=== PATIENT | female | born 1940 | race Caucasian/White ===

== ENCOUNTER 2019-04-26 15:20 | Inpatient (IN) | payer OTHER ==
[~2019-04-26] VITALS: Ht 167.6 cm; Wt 76.6 kg
[~2019-04-26 15:20] MED LIST: ASPI81CH PO; GEMF600 PO; GLIM2 PO; LEVSOD50 PO; METF500 PO; OSTEO BI-FLEX1 EAC4 PO
[2019-04-26 16:14] LABS: BASOPHILS ABSOLUTE AUTO 0.08 K/mm3 (0.00-0.23); BASOPHILS PERCENT AUTO 1 % (0-2); EOSINOPHILS ABSOLUTE AUTO 0.14 K/mm3 (0.00-0.68); EOSINOPHILS PERCENT AUTO 1 % (0-6); Hematocrit 35.7 % (33.0-51.0); Hemoglobin 11.4 g/dL (11.5-16.0); IMMATURE GRAN ABSOLUTE AUTO 0.05 K/mm3 (0.00-0.10); IMMATURE GRAN PERCENT AUTO 1 % (0-1); LYMPHOCYTES ABSOLUTE AUTO 1.34 K/mm3 (0.84-5.20); LYMPHOCYTES PERCENT AUTO 13 % (21-46); MONOCYTES ABSOLUTE AUTO 0.77 K/mm3 (0.16-1.47); MONOCYTES PERCENT AUTO 7 % (4-13); Mean Corpuscular HGB 29.2 pg (26.0-34.0); Mean Corpuscular HGB Conc 31.9 g/dL (31.5-36.5); Mean Platelet Volume 11.1 fL (9.1-12.4); NEUTROPHILS PERCENT AUTO 77 % (41-73); Platelet Count 213 K/mm3 (150-400); RDW Standard Deviation 46.7 fL (35.1-46.3); Red Blood Cell Count 3.91 M/mm3 (3.80-5.20); White Blood Cell Count 10.48 K/mm3 (4.00-11.30)
[2019-04-26 16:15] LABS: Mean Corpuscular Volume 91 fL (80-100)
[2019-04-26 16:21] LABS: International Normalized Ratio 1.02; Prothrombin Time Results 10.8 Sec (9.7-11.5)
[2019-04-26 16:26] LABS: Alanine Aminotransfer (ALT/SGP 14 U/L (12-78); Albumin, Blood 3.2 g/dL (3.4-5.0); Albumin/Globulin Ratio 1.2 (0.8-1.8); Alk Phos 63 U/L (50-136); Anion Gap 12 mmol/L (6-16); Aspartate Aminotrans (AST/SGOT 8 U/L (12-37); Bilirubin, Total 0.4 mg/dL (0.1-1.0); Blood Urea Nitrogen 28 mg/dL (8-24); Bun/Creatinine Ratio 35.1 (12.0-20.0); CO2, Blood 19 mmol/L (21-32); Chloride, Blood 113 mmol/L (98-108); Globulin, Blood 2.7 g/dL (2.2-4.0); Glomerular Filtration Rate >60 (60-); Glucose, Blood 208 mg/dL (70-99); Sodium, Blood 144 mmol/L (136-145); Total Protein, Blood 5.9 g/dL (6.4-8.2)
[2019-04-26] MEDS ORDERED: Vitamin D2000 UNIT PO (17:01)
[2019-04-26] MEDS ORDERED: OMEPRAZOLE20 MG PO (17:01)
--- NOTE | 2019-04-26 18:22 | NUR ---
ICU ADMIT/DR. BENAVIDES/SUMMARY PT ARRIVES TO ICU 10 AT 1725 VIA ER [facility]. PT AWAKE, ALERT AND ORIENTED. MONITOR SHOWS SINUS TACH WITH HR 1-TEENS, SBP ELEVATED 140-160'S. PT NOTED TO HAVE STEADY STREAM OF LIQUID DARK RED STOOL. PT STATES SHE HAS NO CONTROL OVER BOWELS AT THIS TIME. RECTAL TUBE PLACED WITH RETURN OF 500ML WITHIN FIRST 30 MINUTES. PT REPORTS ABDOMINAL CRAMPING. DENIES ANY OTHER SYMPTOMS. APPROX 1745, PT STATES SHE FEELS DIZZY. HEAD OF BED LAID BACK. PT THEN BECOMES UNRESPONSIVE AND APNEIC. CODE BLUE CALLED, BEGIN TO BAG THE PT. WITHIN 1-2 MINUTES, PT BEGINS TO AROUSE. BP READING DURING THIS EVENT SYSTOLIC 40'S. NS BOLUS STARTED. CALL TO DR BENAVIDES WITH ORDERS TO TRANSFUSE 2 UNITS PRBC'S AND LITER BOLUS OF NS, PREP PT FOR COLONOSCOPY. PT'S FAMILY MEMBERS TO BEDSIDE - UPDATED PT AND FAMILY ON EVENTS, PLAN OF CARE. PT CURRENTLY RECEIVING 2 UNITS PRBC CONCURRENTLY. SBP 130'S AT THIS TIME, HR 90-100. RECTAL TUBE CONTINUES TO DRAIN TO GRAVITY. PT HAS 3 PIV'S. PROTONIX GTT INFUSING PER ORDERS. WILL CONTINUE TO MONITOR PT CLOSELY AND GIVE HANDOFF REPORT TO ONCOMING RN WHEN AVAILABLE.
--- NOTE | 2019-04-26 18:33 | NUR ---
DR. MAKAYLA BENAVIDES ROUNDED ON PT. PLAN TO FINISH 2 UNITS PRBC AND RE-CHECK H&H, BEGIN BOWEL PREP FOR COLONOSCOPY - PLAN FOR MORNING UNLESS PT BECOMES MORE UNSTABLE. DISCUSSED PLAN OF CARE WITH PT AND FAMILY AT BEDSIDE.
--- NOTE | 2019-04-26 20:00 | NUR ---
ASSUMED CARE OF PT AT 1915. REPORT RECEIVED AT BEDSIDE. PT PRESENTS IN BED. ALERT AND ORIENTED. PLEASANT AND COOPERATIVE WITH CARE AND ASSESSMENT. STATES SHE DOES HAVE SOME ABDOMINAL CRAMPING AT THIS TIME. DIGNISHIELD IN PLACE. DRAINS MAROOR COLORED LIQUID. PT HAS FAMILY AT BEDSIDE. CONTINUING WITH TRANSFUSIONS OF PRBC'S. NO S/S ADVERSE TRANSFUSION REACTIONS TO NOTE. WILL REVIEW CHART AND PLAN OF CARE FOR THIS PT.
[2019-04-26 22:00] LABS: Hematocrit 38.9 % (33.0-51.0); Hemoglobin 12.7 g/dL (11.5-16.0)
[2019-04-26 23:57] LABS: Source, Urine Catheter
[2019-04-26 23:59] LABS: Bilirubin, Urine Neg (Neg); Blood, Urine Neg (Neg); Glucose Qualitative, Urine Neg (Neg); Ketones, Urine Neg (Neg); Leukocyte Esterase, Urine Neg (Neg); Nitrite, Urine Neg (Neg); Protein, Urine Neg (Neg); Urobilinogen, Urine NORM (Normal)
[2019-04-27 00:40] LABS: Appearance, Urine Clear (Clear); Color, Urine Yellow (P-Yellow)
--- NOTE | 2019-04-27 00:52 | NUR ---
PT COMPLETED THE TWO UNITS OF PRBC'S. CONTINUED TO COMPLAIN OF ABDOMINAL CRAMPING. PT HAS MADE SEVERAL ATTEMPTS TO VOID AND HAS BEEN UNSUCCESSFUL. BLADDER SCAN DONE [facility] REVEALED 764 ML URINE IN BLADDER. 16 CUBAN MARCIAL CATHETER PLACED WITHOUT ISSUES. UA SENT TO LAB FOR PROCESSING. PT STATES THAT THE ABDOMINAL CRAMPING/TENDERNESS HAS GREATLY IMPROVED. PT'S RECTAL TUBE HAS HAD LEAKAGE AROUND TUBE. PT CONTINUES ON GOLYTLE. SHE NEEDS ENCOURAGEMENT TO KEEP DRINKING MED. HAS NOT HAD ANY FURTHER SYNCOPAL/JOAN EVENTS THIS SHIFT. WILL CONTINUE TO MONITOR PT, AND TO ENCOURAGE HER TO KEEP GOING WITH BOWEL PREP.
--- NOTE | 2019-04-27 02:36 | NUR ---
PT CONTINUES TO DO BOWEL PREP. HAS BEEN SOMEWHAT SLOW, BUT IS ABLE TO COMPLETE THE MAJORITY OF THE PREP AT THIS POINT. WILL KEEP ENCOURAGING PT TO FINISH PREP.
[2019-04-27 03:46] LABS: BASOPHILS ABSOLUTE AUTO 0.04 K/mm3 (0.00-0.23); BASOPHILS PERCENT AUTO 0 % (0-2); EOSINOPHILS ABSOLUTE AUTO 0.06 K/mm3 (0.00-0.68); EOSINOPHILS PERCENT AUTO 1 % (0-6); Hematocrit 34.7 % (33.0-51.0); Hemoglobin 11.3 g/dL (11.5-16.0); IMMATURE GRAN ABSOLUTE AUTO 0.06 K/mm3 (0.00-0.10); IMMATURE GRAN PERCENT AUTO 1 % (0-1); LYMPHOCYTES ABSOLUTE AUTO 2.05 K/mm3 (0.84-5.20); LYMPHOCYTES PERCENT AUTO 18 % (21-46); MONOCYTES ABSOLUTE AUTO 0.92 K/mm3 (0.16-1.47); MONOCYTES PERCENT AUTO 8 % (4-13); Mean Corpuscular HGB 29.3 pg (26.0-34.0); Mean Corpuscular HGB Conc 32.6 g/dL (31.5-36.5); Mean Corpuscular Volume 90 fL (80-100); NEUTROPHILS ABSOLUTE AUTO 8.27 K/mm3 (1.96-9.15); NEUTROPHILS PERCENT AUTO 73 % (41-73); Platelet Count 177 K/mm3 (150-400); RDW Coefficient Variation 14.2 % (11.7-14.2); RDW Standard Deviation 46.5 fL (35.1-46.3); Red Blood Cell Count 3.86 M/mm3 (3.80-5.20)
[2019-04-27 04:04] LABS: Alanine Aminotransfer (ALT/SGP 13 U/L (12-78); Albumin/Globulin Ratio 1.2 (0.8-1.8); Alk Phos 43 U/L (50-136); Anion Gap 5 mmol/L (6-16); Aspartate Aminotrans (AST/SGOT 11 U/L (12-37); Bilirubin, Total 0.6 mg/dL (0.1-1.0); Blood Urea Nitrogen 18 mg/dL (8-24); Bun/Creatinine Ratio 24.1 (12.0-20.0); CO2, Blood 25 mmol/L (21-32); Calcium, Blood 7.5 mg/dL (8.5-10.1); Chloride, Blood 112 mmol/L (98-108); Creatinine, Blood 0.75 mg/dL (0.40-1.00); Globulin, Blood 2.4 g/dL (2.2-4.0); Glomerular Filtration Rate >60 (60-); Glucose, Blood 123 mg/dL (70-99); Potassium, Blood 3.8 mmol/L (3.5-5.5); Sodium, Blood 142 mmol/L (136-145); Total Protein, Blood 5.4 g/dL (6.4-8.2)
--- NOTE | 2019-04-27 05:50 | NUR ---
PT COMPLETED GOLYTLE AND HAVE NOTED STOOLS HAVE CLEARED TO WATERY WITH LIGHT BROWNISH HUE. PT HAS HAD LEAKAGE AROUND HER DIGNISHIELD AND HAS HAD BED CHANGE DONE THREE TIMES THIS NIGHT. CURRENTLY ON HER LEFT SIDE WITHOUT NOTEABLE LEAKAGE. PT HAS NOT BEEN ABLE TO REST MUCH THIS NIGHT SECONDARY TO PREP. PT IS TO HAVE HER COLONOSCOPY THIS AM SCHEDULED FOR 0700. PT AWARE AND ACCEPTING. PT DID HAVE ISSUES WITH NOT BEING ABLE TO VOID ON MULTIPLE ATTEMPTS. BLADDER SCAN DONE WHICH REVEALED OVER 700 ML IN BLADDER. PT HAD ABDOMINIAL PAIN THAT SHE STATES WAS GETTING SEVERE. AFTER BLADDER SCAN DID PLACE 16 MALAYSIAN MARCIAL WITHOUT DIFFICULTIES. PT STATES THIS HAS GREATELY REDUCED ABDOMINAL PAIN. PT HAS NOT HAD ANY SYNCOPAL OR VAGAL EPISODES THIS SHIFT. DENIES VERTIGO. NO COMPLAINTS OF ABDOMINAL PAIN OR NAUSEA THIS MORNING. WILL CONTINUE TO MONITOR PT, AND WILL REPORT OFF TO ONCOMING RN.
--- NOTE | 2019-04-27 06:28 | NUR ---
INTO ICU 10 PRE ADMIT FOR SURGERY BEING DONE PATIENT AWAKE FAMILY HERE TO VISIT. PRE ADMIT STARTED.
--- NOTE | 2019-04-27 07:05 | NUR ---
BEGINNING OF SHIFT Assumed care of pt at 0700 with Deyanira TRINIDAD. Bedside report recieved from Vern TRINIDAD. Endoscopy staff at bedside preparing for in-room endoscopy.
--- NOTE | 2019-04-27 08:39 | NUR ---
UPDATE Colonoscopy complete. Rectal tube no longer in place. Pt in bed, eating breakfast and visiting with family. Pt currently on room air. States she is feeling well. Pt PCU status. No BM since colonoscopy. Peterson in place, plans to remove later today.
[2019-04-27 10:16] LABS: Hematocrit 31.3 % (33.0-51.0); Hemoglobin 10.5 g/dL (11.5-16.0)
--- NOTE | 2019-04-27 13:40 | NUR ---
MARCIAL REMOVED Marcial removed. Pt sat up in chair for lunch and then back to bed afterwards. Tolerated activity well. No BM since colonoscopy.
[2019-04-27 16:14] LABS: Hematocrit 33.6 % (33.0-51.0)
--- NOTE | 2019-04-27 18:10 | NUR ---
SUMMARY No acute changes since last note. Pt has voided urine since removal of mckeon catheter. Pt remains on room air. No events per heart monitor. Will continue to closely monitor until care handoff and bedside report with oncoming RN.
[2019-04-27 21:49] LABS: Hematocrit 30.9 % (33.0-51.0); Hemoglobin 10.2 g/dL (11.5-16.0)
[2019-04-28 03:20] LABS: BASOPHILS ABSOLUTE AUTO 0.05 K/mm3 (0.00-0.23); BASOPHILS PERCENT AUTO 1 % (0-2); EOSINOPHILS ABSOLUTE AUTO 0.22 K/mm3 (0.00-0.68); EOSINOPHILS PERCENT AUTO 3 % (0-6); Hematocrit 32.2 % (33.0-51.0); Hemoglobin 10.4 g/dL (11.5-16.0); IMMATURE GRAN ABSOLUTE AUTO 0.03 K/mm3 (0.00-0.10); IMMATURE GRAN PERCENT AUTO 0 % (0-1); LYMPHOCYTES ABSOLUTE AUTO 2.18 K/mm3 (0.84-5.20); LYMPHOCYTES PERCENT AUTO 28 % (21-46); MONOCYTES ABSOLUTE AUTO 0.69 K/mm3 (0.16-1.47); MONOCYTES PERCENT AUTO 9 % (4-13); Mean Corpuscular HGB 29.5 pg (26.0-34.0); Mean Corpuscular HGB Conc 32.3 g/dL (31.5-36.5); Mean Corpuscular Volume 91 fL (80-100); Mean Platelet Volume 11.2 fL (9.1-12.4); NEUTROPHILS ABSOLUTE AUTO 4.77 K/mm3 (1.96-9.15); NEUTROPHILS PERCENT AUTO 60 % (41-73); Platelet Count 143 K/mm3 (150-400); RDW Coefficient Variation 14.5 % (11.7-14.2); Red Blood Cell Count 3.53 M/mm3 (3.80-5.20); White Blood Cell Count 7.94 K/mm3 (4.00-11.30)
--- NOTE | 2019-04-28 05:06 | NUR ---
SHIFT SUMMARY: PATIENT VERY COOPERATIVE WITH CARE, SBA TO COMMODE D/T LINES/CORDS. PATIENT STEADY ON HER FEET AND CAUTIOUS WITH MOVEMENT. PATIENT STATES SHE FEELS MUCH BETTER THIS SHIFT AND WAS VERY RECEPTIVE TO EDUCATION ON DIVERTICULOSIS AND HEMERRHOIDS. VSS, URINATING WELL POST MARCIAL REMOVAL, H&h STILL REMAINS STABLE, BED LOW AND LOCKED, CALL LIGHT WITHIN REACH. PATIENT REQUESTING STOOL SOFTNERS FOR HOME USE SHE HAS BEEN EXPERIENCING CHRONIC CONSTIPATION.
--- NOTE | 2019-04-28 08:00 | NUR ---
ASSUMED CARE: RECEIVED REPORT FROM NOC VIVI WADE. PCT ASSISTS PT UP TO CHAIR. NO ACUTE DISTRESS NOTED FROM PT. NO SOB NOTED PT ON RA SATTING IN THE 90'S. VSS AT THIS TIME. PT APPEARS TO BE A/O X 3. BLOOD SUGAR NOTED TO BE 134 NO COVERAGE INDICATED. DENIES PAIN AT THIS TIME. WILL CONTINUE TO MONITOR AND ASSESS FURTHER.
[2019-04-28] MEDS ORDERED: Senna Plus Tab1 EACH PO (13:41)
[2019-04-28] MEDS ORDERED: MIRALAX17 GM PO (13:42)
--- NOTE | 2019-04-28 13:55 | NUR ---
DISCHARGE: DESHAWN MARTINES RN REVIEWED DISCHARGE PACKET WITH PT AND GAVE DISCHARGE INSTRUCTIONS. PT WALKED OUT OF THE UNIT WITH DESHAWN MARTINES RN.
== END 2019-04-28 14:15 | disposition home or self-care (01) | DRG 378 ==
LOC: ER 15:20 → ICUW 15:21
PROVIDERS: Emergency Medicine; Internal Medicine; Internal Medicine Gastroenterology; ADMIT Internal Medicine
PROC: 0DBK8ZX Excision of Ascending Colon, Via Natural or Artificial Opening Endoscopic, Diagnostic (ICD-10-PCS; 2019-04-27)
PROC: 30233N1 Transfusion of Nonautologous Red Blood Cells into Peripheral Vein, Percutaneous Approach (ICD-10-PCS; principal; 2019-04-27 07:00)
DX: K57.31 Diverticulosis of large intestine without perforation or abscess with bleeding (principal); D62 Acute posthemorrhagic anemia; E03.9 Hypothyroidism, unspecified; E11.9 Type 2 diabetes mellitus without complications; Z79.84 Long term (current) use of oral hypoglycemic drugs; Z79.4 Long term (current) use of insulin; K64.1 Second degree hemorrhoids; K63.5 Polyp of colon
CPT/HCPCS: 36415; 36430; 51702; 80053; 81003; 82947; 85014; 85018; 85025; 85610; 85730; 86850; 86900; 86901; 86923; 88305; 93005; 93010; 96365; 99285-25; C9113; G0378; J2704; J7030; J7120; P9016

== ENCOUNTER → 2019-05-01 | Outpatient (CLI) | payer OTHER ==
[~2019-05-01] MED LIST changes: +MIRALAX17 GM PO; +OMEPRAZOLE20 MG PO; +Senna Plus Tab1 EACH PO; +Vitamin D2000 UNIT PO
[2019-05-01 10:27] LABS: BASOPHILS ABSOLUTE AUTO 0.04 K/mm3 (0.00-0.23); BASOPHILS PERCENT AUTO 0 % (0-2); EOSINOPHILS ABSOLUTE AUTO 0.02 K/mm3 (0.00-0.68); EOSINOPHILS PERCENT AUTO 0 % (0-6); Hematocrit 35.4 % (33.0-51.0); Hemoglobin 11.9 g/dL (11.5-16.0); IMMATURE GRAN ABSOLUTE AUTO 0.07 K/mm3 (0.00-0.10); IMMATURE GRAN PERCENT AUTO 1 % (0-1); LYMPHOCYTES ABSOLUTE AUTO 0.76 K/mm3 (0.84-5.20); LYMPHOCYTES PERCENT AUTO 5 % (21-46); MONOCYTES ABSOLUTE AUTO 1.02 K/mm3 (0.16-1.47); MONOCYTES PERCENT AUTO 7 % (4-13); Mean Corpuscular HGB 29.5 pg (26.0-34.0); Mean Corpuscular HGB Conc 33.6 g/dL (31.5-36.5); Mean Corpuscular Volume 88 fL (80-100); Mean Platelet Volume 10.8 fL (9.1-12.4); NEUTROPHILS ABSOLUTE AUTO 13.05 K/mm3 (1.96-9.15); NEUTROPHILS PERCENT AUTO 87 % (41-73); Platelet Count 220 K/mm3 (150-400); RDW Coefficient Variation 14.6 % (11.7-14.2); RDW Standard Deviation 46.4 fL (35.1-46.3); Red Blood Cell Count 4.04 M/mm3 (3.80-5.20); White Blood Cell Count 14.96 K/mm3 (4.00-11.30)
== END | disposition home or self-care (01) ==
LOC: LAB EV 10:23 → LAB SHORT 10:23
PROVIDERS: Physician Assistant
DX: I80.9 Phlebitis and thrombophlebitis of unspecified site (principal)
CPT/HCPCS: 85025

== ENCOUNTER 2020-02-04 04:05 | Emergency (ER) | payer OTHER ==
[~2020-02-04] VITALS: Ht 162.6 cm; Wt 78.5 kg
[2020-02-04 04:47] LABS: Source, Urine Catheter
[2020-02-04 04:56] LABS: Bilirubin, Urine Neg (Neg); Blood, Urine 5+ (Neg); Glucose Qualitative, Urine Neg (Neg); Ketones, Urine Neg (Neg); Leukocyte Esterase, Urine Neg (Neg); Nitrite, Urine Neg (Neg); Protein, Urine 1+ (Neg); Urobilinogen, Urine NORM (Normal)
[2020-02-04 05:05] LABS: BASOPHILS ABSOLUTE AUTO 0.08 K/mm3 (0.00-0.23); BASOPHILS PERCENT AUTO 1 % (0-2); EOSINOPHILS ABSOLUTE AUTO 0.08 K/mm3 (0.00-0.68); EOSINOPHILS PERCENT AUTO 1 % (0-6); Hematocrit 43.5 % (33.0-51.0); Hemoglobin 14.3 g/dL (11.5-16.0); IMMATURE GRAN ABSOLUTE AUTO 0.12 K/mm3 (0.00-0.10); IMMATURE GRAN PERCENT AUTO 1 % (0-1); LYMPHOCYTES PERCENT AUTO 9 % (21-46); MONOCYTES ABSOLUTE AUTO 0.51 K/mm3 (0.16-1.47); MONOCYTES PERCENT AUTO 4 % (4-13); Mean Corpuscular HGB 29.1 pg (26.0-34.0); Mean Corpuscular HGB Conc 32.9 g/dL (31.5-36.5); Mean Corpuscular Volume 88 fL (80-100); Mean Platelet Volume 11.5 fL (9.1-12.4); NEUTROPHILS ABSOLUTE AUTO 10.66 K/mm3 (1.96-9.15); NEUTROPHILS PERCENT AUTO 85 % (41-73); Platelet Count 219 K/mm3 (150-400); RDW Coefficient Variation 12.9 % (11.7-14.2); RDW Standard Deviation 41.5 fL (35.1-46.3); Red Blood Cell Count 4.92 M/mm3 (3.80-5.20); White Blood Cell Count 12.55 K/mm3 (4.00-11.30)
[2020-02-04 05:07] LABS: Amorphous Mod (0-Heavy); Appearance, Urine Hazy (Clear); Bacteria Rare /hpf; Color, Urine Yellow (P-Yellow); Red Blood Cells, Urine TNTC /hpf (0-2); Squamous Epithelial Cells Rare /hpf (Few); White Blood Cells, Urine Rare /hpf (0-5)
[2020-02-04 05:36] LABS: Alanine Aminotransfer (ALT/SGP 20 U/L (12-78); Albumin, Blood 4.1 g/dL (3.4-5.0); Albumin/Globulin Ratio 1.1 (0.8-1.8); Alk Phos 75 U/L (50-136); Anion Gap 10 mmol/L (6-16); Aspartate Aminotrans (AST/SGOT 13 U/L (12-37); Bilirubin, Total 0.3 mg/dL (0.1-1.0); Blood Urea Nitrogen 29 mg/dL (8-24); CO2, Blood 21 mmol/L (21-32); Calcium, Blood 9.8 mg/dL (8.5-10.1); Chloride, Blood 108 mmol/L (98-108); Creatinine, Blood 0.94 mg/dL (0.40-1.00); Globulin, Blood 3.7 g/dL (2.2-4.0); Glomerular Filtration Rate >60 (60-); Glucose, Blood 305 mg/dL (70-99); Sodium, Blood 139 mmol/L (136-145); Total Protein, Blood 7.8 g/dL (6.4-8.2)
[2020-02-04] MEDS ORDERED: Norco 5-325 Ta1 EACH PO (06:17)
[2020-02-04] MEDS ORDERED: KETO10 PO (06:18)
[2020-02-04] MEDS ORDERED: ONDA4ODT MM (06:18)
[2020-02-04] MEDS ORDERED: Flomax0.4 MG PO (06:18)
== END 2020-02-04 08:02 | disposition home or self-care (01) ==
LOC: ER 04:05
PROVIDERS: Emergency Medicine
DX: N13.2 Hydronephrosis with renal and ureteral calculous obstruction (principal); E11.9 Type 2 diabetes mellitus without complications; E03.9 Hypothyroidism, unspecified; Z87.891 Personal history of nicotine dependence; Z88.5 Allergy status to narcotic agent; Z88.8 Allergy status to other drugs, medicaments and biological substances; Z79.84 Long term (current) use of oral hypoglycemic drugs; Z79.899 Other long term (current) drug therapy
CPT/HCPCS: 36415; 74176; 80053; 81001; 83690; 85025; 96361; 96374; 96375; 96376; 99284-25; A9270; A9270-GY; J1885; J2405; J2765; J3010; J7030; P9612

== ENCOUNTER 2023-12-07 12:40 | Day surgery (SDC) | payer OTHER ==
[~2023-12-07] VITALS: Ht 160 cm; Wt 75.9 kg
[~2023-12-07 12:40] MED LIST changes: +ACET500 PO; +ALEN70 PO; +ALPR.25; +Balanced Salt Epinephrine Irrigation Solution 500 mL IR SCH; +CALCITONIN-SAL3.7 M5; +Flomax0.4 MG PO; +GABA100 PO; +KETO10 PO; +LEVOTHYROXINE25 MC9 PO; +Lidocaine HCl/Pf 1% 5 ML VIAL XX SCH; +Moxifloxacin HCL 0.5 MG/0.1 ML 0.4MLSYR LEFTEYE SCH; +NS 500 ML IV ONE; +Norco 5-325 Ta1 EACH PO; +ONDA4ODT MM; +PHENYLEPHRINE\\TROPICAMIDE\\TETRACAINE OPHTHALMIC DILATING SOLN LEFTEYE PRN; +POTA8 PO; +PROTONIX4010 PO; +Povidone-Iodine 450 DROP/30 ML Solution LEFTEYE SCH; +Povidone-Iodine 450 DROP/30 ML Solution ONE; +Prinivil10 MG PO; +Prozac20 MG PO; +VIT C; +Voltaren100 GM
[2023-12-07] MEDS ORDERED: PROP10 PO (13:17)
[2023-12-07] MEDS ORDERED: NS 500 ML IV ONE (13:21)
--- NOTE | 2023-12-07 13:22 | NUR ---
12/07/23 1322 Lulú Durbin CALL LIGHT WITHIN REACH. TETRACAINE IN LEFT EYE AT 1317 AND PLEDGETT IN AT 1318
[2023-12-07] MEDS ORDERED: FentaNYL Citrate 50 MCG/ML 2 ML Injection ONE (13:47)
[2023-12-07] MEDS ORDERED: Midazolam HCl 1MG / ML 2ML Vial ONE (13:47)
[2023-12-07] MEDS ORDERED: Tetracaine HCl 0.5% Opth Soln 15 ml XX ONE (14:14)
[2023-12-07] MEDS ORDERED: Ondansetron HCl 2 MG / ML 2ML Vial ONE (14:18)
[2023-12-07 14:40] VITALS: BP 140/93
--- NOTE | 2023-12-07 14:53 | NUR ---
12/07/23 1453 Steve Chamberlain PT ADVISED TO MONITOR B/P AT HOME AND FOLLOW UP WITH PCP, IF NECESSARY.
== END 2023-12-07 14:52 | disposition home or self-care (01) ==
LOC: ORSCSDS 12:40
PROVIDERS: Student in an Organized Health Care Education/Training Program
PROC: 08RK3JZ Replacement of Left Lens with Synthetic Substitute, Percutaneous Approach (ICD-10-PCS; principal; 2023-12-07 14:30)
DX: E11.36 Type 2 diabetes mellitus with diabetic cataract (principal); H25.12 Age-related nuclear cataract, left eye; E78.5 Hyperlipidemia, unspecified; E03.9 Hypothyroidism, unspecified; E88.810 Metabolic syndrome; I10 Essential (primary) hypertension; E66.9 Obesity, unspecified; Z68.29 Body mass index [BMI] 29.0-29.9, adult; K21.9 Gastro-esophageal reflux disease without esophagitis; Z79.899 Other long term (current) drug therapy; Z87.891 Personal history of nicotine dependence
CPT/HCPCS: 82947; J2250; J2405; J3010; J7040; V2632

== ENCOUNTER 2023-12-21 09:41 | Day surgery (SDC) | payer OTHER ==
[~2023-12-21] VITALS: Ht 162.6 cm; Wt 75.9 kg
[~2023-12-21 09:41] MED LIST changes: +FentaNYL Citrate 50 MCG/ML 2 ML Injection ONE; +Midazolam HCl 1MG / ML 2ML Vial ONE; -Moxifloxacin HCL 0.5 MG/0.1 ML 0.4MLSYR LEFTEYE SCH; +Moxifloxacin HCL 0.5 MG/0.1 ML 0.4MLSYR RIGHTEYE SCH; -PHENYLEPHRINE\\TROPICAMIDE\\TETRACAINE OPHTHALMIC DILATING SOLN LEFTEYE PRN; +PHENYLEPHRINE\\TROPICAMIDE\\TETRACAINE OPHTHALMIC DILATING SOLN RIGHTEYE PRN; +PROP10 PO; -Povidone-Iodine 450 DROP/30 ML Solution LEFTEYE SCH; +Povidone-Iodine 450 DROP/30 ML Solution RIGHTEYE SCH
[2023-12-21] MEDS ORDERED: NS 1,000 ML IV ONE (10:10)
[2023-12-21] MEDS ORDERED: Tetracaine HCl 0.5% Opth Soln 15 ml RIGHTEYE ONE (10:41)
[2023-12-21 11:07] VITALS: BP 132/66
== END 2023-12-21 11:20 | disposition home or self-care (01) ==
LOC: ORSCSDS 09:41
PROVIDERS: Student in an Organized Health Care Education/Training Program
PROC: 08RJ3JZ Replacement of Right Lens with Synthetic Substitute, Percutaneous Approach (ICD-10-PCS; principal; 2023-12-21 11:00)
DX: E11.36 Type 2 diabetes mellitus with diabetic cataract (principal); H25.11 Age-related nuclear cataract, right eye; Z96.1 Presence of intraocular lens; I10 Essential (primary) hypertension; E78.5 Hyperlipidemia, unspecified; E03.9 Hypothyroidism, unspecified; E88.810 Metabolic syndrome; Z79.84 Long term (current) use of oral hypoglycemic drugs; Z79.899 Other long term (current) drug therapy; Z87.891 Personal history of nicotine dependence
CPT/HCPCS: 82947; J2250; J3010; J7040; V2632

== ENCOUNTER 2025-04-29 15:26 | Observation (INO) | payer OTHER ==
[~2025-04-29] VITALS: Ht 162.6 cm; Wt 70.2 kg
[~2025-04-29 15:26] MED LIST changes: -Balanced Salt Epinephrine Irrigation Solution 500 mL IR SCH; -FentaNYL Citrate 50 MCG/ML 2 ML Injection ONE; -Lidocaine HCl/Pf 1% 5 ML VIAL XX SCH; -Midazolam HCl 1MG / ML 2ML Vial ONE; -Moxifloxacin HCL 0.5 MG/0.1 ML 0.4MLSYR RIGHTEYE SCH; -NS 500 ML IV ONE; -PHENYLEPHRINE\\TROPICAMIDE\\TETRACAINE OPHTHALMIC DILATING SOLN RIGHTEYE PRN; -Povidone-Iodine 450 DROP/30 ML Solution ONE; -Povidone-Iodine 450 DROP/30 ML Solution RIGHTEYE SCH
[2025-04-29 15:54] LABS: Hematocrit 41.6 % (33.0-51.0); Hemoglobin 13.1 g/dL (11.5-16.0); Mean Corpuscular HGB 35.5 pg (26.0-34.0); Mean Corpuscular HGB Conc 31.5 g/dL (31.5-36.5); Mean Corpuscular Volume 113 fL (80-100); Mean Platelet Volume 9.9 fL (9.1-12.4); Platelet Count 423 K/mm3 (150-400); RDW Standard Deviation 57.3 fL (35.1-46.3); Red Blood Cell Count 3.69 M/mm3 (3.80-5.20); White Blood Cell Count 14.55 K/mm3 (4.00-11.30)
[2025-04-29 16:22] LABS: Albumin, Blood 2.7 g/dL (3.4-5.0); Albumin/Globulin Ratio 0.5 (0.8-1.8); Bilirubin, Total 0.7 mg/dL (0.1-1.0); Bun/Creatinine Ratio 15.3 (12.0-20.0); Calcium, Blood 9.5 mg/dL (8.5-10.1); Creatinine, Blood 1.57 mg/dL (0.40-1.00); Globulin, Blood 5.1 g/dL (2.2-4.0); Potassium, Blood 6.1 mmol/L (3.5-5.5); Total Protein, Blood 7.8 g/dL (6.4-8.2)
[2025-04-29 16:52] LABS: BASOPHILS PERCENT MAN 0 % (0-2); EOSINOPHILS ABSOLUTE MAN 0.58 K/mm3 (0.00-0.68); EOSINOPHILS PERCENT MAN 4 % (0-6); LYMPHOCYTES ABSOLUTE MAN 3.49 K/mm3 (0.84-5.20); LYMPHOCYTES PERCENT MAN 24 % (21-46); MONOCYTES ABSOLUTE MAN 0.58 K/mm3 (0.16-1.47); MONOCYTES PERCENT MAN 4 % (4-13); NEUTROPHILS ABSOLUTE MAN 9.89 K/mm3 (1.96-9.15); SEG NEUTROPHILS PERCENT MAN 68 % (41-73); TOTAL CELLS COUNTED 100
[2025-04-29 16:57] LABS: Chloride (POC) 102 mmol/L (98-108); Creatinine (POC) 1.9 mg/dL (0.6-1.0); Glucose (ISTAT POC) 206 mg/dL (70-99); Hemoglobin (POC) 12.9 g/dL (12.0-16.0); Potassium (POC) 4.9 mmol/L (3.5-5.5); Sodium (POC) 134 mmol/L (135-148); Total CO2 (POC) 23 mmol/L (21-32)
[2025-04-29] MEDS ORDERED: CefTRIAXone Sodium 1,000 MG in NS 50 ML IV ONE (17:00)
[2025-04-29] MEDS ORDERED: Bisacodyl 10 MG Supp PR PRN (17:40)
[2025-04-29] MEDS ORDERED: Ondansetron 4 MG TAB PO PRN (17:40)
[2025-04-29] MEDS ORDERED: Acetaminophen 325 MG TABLET PO PRN (17:40)
[2025-04-29] MEDS ORDERED: Magnesium Hydroxide Conc 10 ML UDC PO PRN (17:45)
[2025-04-29 18:06] LABS: Influenza A, PCR NEGATIVE (NEGATIVE); Influenza B, PCR NEGATIVE (NEGATIVE); Resp Syncytial Virus, PCR NEGATIVE (NEGATIVE); SARS-Cov-2 (COVID-19) PCR, MMC NEGATIVE (NEGATIVE)
[2025-04-29] MEDS ORDERED: NS 1,000 ML IV SCH ×2 (18:10→19:50)
[2025-04-29] MEDS ORDERED: Azithromycin 500 MG in NS 250 ML IV ONE (18:10)
[2025-04-29 18:55] VITALS: BP 136/59
--- NOTE | 2025-04-29 20:38 | NUR ---
PATIENT ARRIVED TO MEDICAL FLOOR AT 1845 VIA WHEELCHAIR, ESCORTED BY GRAIN SHOVELER. IMMEDIATELY CHANGED INTO GOWN. PATIENT VERY DYSPNIC c ANY EXERTION. SCATTERED BRUSING SHE ATTRIBTUES TO "BEING BUSY". REPORTED SHE HADN'T EATEN SINCE THIS MORNING AND WAS PREPARED A LEAN CUISINE MEAL FROM OUR [facility]. V/S OBTAINED AND PT CARE TUREND OVER TO NIGHT NURSE. CALL LIGHT WITHIN REACH. ACUTE NEEDS MET.
[2025-04-29] MEDS ORDERED: Lactobacil 2-S.Thermo-Bifido 1 1 Cap PO SCH (21:00)
[2025-04-29] MEDS ORDERED: Gemfibrozil 600 MG Tab PO SCH (21:00)
[2025-04-29] MEDS ORDERED: Famotidine 20 MG Tab PO SCH (21:00)
[2025-04-29] MEDS ORDERED: Docusate Sodium 100 MG Cap PO SCH (21:00)
[2025-04-29] MEDS ORDERED: Sennosides 8.6 MG Tab PO SCH (21:00)
[2025-04-30 02:49] VITALS: BP 157/70
[2025-04-30] MEDS ORDERED: Benzonatate 100 MG Cap PO PRN (03:00)
[2025-04-30] MEDS ORDERED: Levothyroxine Sodium 0.025 MG Tab PO SCH (06:00)
--- NOTE | 2025-04-30 06:27 | NUR ---
FEATHER SHAPER SUMMARY: PT A&O X4. NO ACUTE EVENTS T/O SHIFT. IV FLUIDS INFUSING PER EMAR ORDER. NO NOTED RESPIRATORY DISTRESS T/O SHIFT. OCCASIONAL MOIST COUGH. NEW ORDER RECEIVED FOR TESSALON PEARLS 200MG PO TID PRN COUGH; EFFECTIVE. PT IS A 1 PERSON SBA TO BATHROOM. INDEPENDENT WITH BED MOBILITY. CALL LIGHT IN REACH. CALLS APPROPRIATELY. BED IN LOWEST POSITION. CARES ONGOING ORDERED.
[2025-04-30 06:53] LABS: Hematocrit 31.7 % (33.0-51.0); Hemoglobin 10.7 g/dL (11.5-16.0); Mean Corpuscular HGB 35.8 pg (26.0-34.0); Mean Corpuscular HGB Conc 33.8 g/dL (31.5-36.5); Mean Platelet Volume 9.7 fL (9.1-12.4); Platelet Count 309 K/mm3 (150-400); RDW Coefficient Variation 13.7 % (11.7-14.2); RDW Standard Deviation 51.9 fL (35.1-46.3); Red Blood Cell Count 2.99 M/mm3 (3.80-5.20); White Blood Cell Count 11.11 K/mm3 (4.00-11.30)
[2025-04-30 07:15] LABS: Calcium, Blood 8.4 mg/dL (8.5-10.1); Creatinine, Blood 1.47 mg/dL (0.40-1.00); Potassium, Blood 4.5 mmol/L (3.5-5.5)
[2025-04-30 07:16] LABS: BAND PERCENT MAN 1 % (0-8); BASOPHILS PERCENT MAN 1 % (0-2); EOSINOPHILS PERCENT MAN 1 % (0-6); LYMPHOCYTES PERCENT MAN 12 % (21-46); METAMYELOCYTE PERCENT MAN 3 % (0-0); MONOCYTES PERCENT MAN 4 % (4-13); SEG NEUTROPHILS PERCENT MAN 78 % (41-73); TOTAL CELLS COUNTED 100
[2025-04-30 07:18] LABS: Mean Corpuscular Volume 106 fL (80-100)
[2025-04-30 07:27] VITALS: BP 127/55
[2025-04-30] MEDS ORDERED: Insulin Regular 100 UNIT/ML 10ML Vial SC SCH (07:30)
[2025-04-30] MEDS ORDERED: Enoxaparin 30 MG/0.3 ML SYR SC SCH (09:00)
[2025-04-30] MEDS ORDERED: Lisinopril 10 MG Tab PO SCH (09:00)
[2025-04-30] MEDS ORDERED: AMOCLA875 PO ×2 (11:53)
[2025-04-30] MEDS ORDERED: Tessalon200 MG PO ×2 (11:53)
[2025-04-30] MEDS ORDERED: AZIT250 PO ×2 (11:54)
--- NOTE | 2025-04-30 12:44 | NUR ---
PT DISCHARGED WITH DC INSTRUCTIONS. RX TO [facility]. PT AWARE TO COMPLETE ALL ABX TO COMPLETION. WENT OVER BREATHING TECH, AND RECUMBANT POSITION FOR DYSPNEA, AND TO PACE FOR ACTIVITY TO PREVENT DYSPNEA. WHEELCHAIR TO PRIVATE CAR, SON WILL DRIVE PT BACK TO HOME. SHE STATES SHE FEELS MUCH BETTER THAN WHEN SHE CAME IN AND IS INSISTANT ON GOING HOME.
[2025-04-30] MEDS ORDERED: CefTRIAXone Sodium 1,000 MG in NS 100 ML IV SCH (18:00)
[2025-04-30] MEDS ORDERED: Azithromycin 500 MG in NS 250 ML IV SCH (21:00)
[2025-05-01] MEDS ORDERED: ONDA4ODT MM ×2 (16:35)
== END 2025-04-30 12:49 | disposition home or self-care (01) ==
LOC: ER 15:26 → ERHOLD 15:27 → MEDS 15:27
PROVIDERS: Emergency Medicine; ADMIT Hospitalist
DX: J18.9 Pneumonia, unspecified organism (principal); A41.9 Sepsis, unspecified organism; E03.9 Hypothyroidism, unspecified; E11.22 Type 2 diabetes mellitus with diabetic chronic kidney disease; E87.1 Hypo-osmolality and hyponatremia; E78.5 Hyperlipidemia, unspecified; N18.9 Chronic kidney disease, unspecified; N17.9 Acute kidney failure, unspecified; I10 Essential (primary) hypertension; Z87.891 Personal history of nicotine dependence; Z79.84 Long term (current) use of oral hypoglycemic drugs; Z79.890 Hormone replacement therapy; Z79.899 Other long term (current) drug therapy; Z88.5 Allergy status to narcotic agent; Z88.8 Allergy status to other drugs, medicaments and biological substances
CPT/HCPCS: 0241U; 36415; 71046; 80047; 80048; 80053; 82947; 83605; 85014; 85025; 87040; 93005; 93010; 96361; 96365; 96372; 96374; 96375; 99285-25; A9270; G0378; J0456; J0696; J1650; J7030; J7050

== ENCOUNTER 2025-05-01 08:16 | Emergency (ER) | payer OTHER ==
[~2025-05-01] VITALS: Ht 162.6 cm; Wt 72.6 kg
[~2025-05-01 08:16] MED LIST changes: +AMOCLA875 PO; +AZIT250 PO; +Tessalon200 MG PO
[2025-05-01 09:12] LABS: BASOPHILS ABSOLUTE AUTO 0.12 K/mm3 (0.00-0.23); BASOPHILS PERCENT AUTO 1 % (0-2); EOSINOPHILS ABSOLUTE AUTO 0.11 K/mm3 (0.00-0.68); EOSINOPHILS PERCENT AUTO 1 % (0-6); Hematocrit 33.2 % (33.0-51.0); Hemoglobin 11.4 g/dL (11.5-16.0); IMMATURE GRAN ABSOLUTE AUTO 0.38 K/mm3 (0.00-0.10); IMMATURE GRAN PERCENT AUTO 5 % (0-1); LYMPHOCYTES ABSOLUTE AUTO 1.08 K/mm3 (0.84-5.20); LYMPHOCYTES PERCENT AUTO 13 % (21-46); MONOCYTES ABSOLUTE AUTO 0.39 K/mm3 (0.16-1.47); MONOCYTES PERCENT AUTO 5 % (4-13); Mean Corpuscular HGB Conc 34.3 g/dL (31.5-36.5); Mean Corpuscular Volume 103 fL (80-100); NEUTROPHILS ABSOLUTE AUTO 6.39 K/mm3 (1.96-9.15); NEUTROPHILS PERCENT AUTO 75 % (41-73); NRBC ABSOLUTE 0.00 K/mm3 (0.00-0.02); NRBC Auto 0.0 /100 WBC (0.0-0.2); Platelet Count 410 K/mm3 (150-400); RDW Coefficient Variation 13.8 % (11.7-14.2); RDW Standard Deviation 51.1 fL (35.1-46.3)
[2025-05-01 09:29] LABS: Alanine Aminotransfer (ALT/SGP 14.0 U/L (12-78); Albumin, Blood 3.0 g/dL (3.4-5.0); Albumin/Globulin Ratio 0.7 (0.8-1.8); Anion Gap 8.0 mmol/L (3-11); Aspartate Aminotrans (AST/SGOT 33.0 U/L (12-37); Bilirubin, Total 0.4 mg/dL (0.1-1.0); Blood Urea Nitrogen 16.0 mg/dL (8-24); CO2, Blood 26.0 mmol/L (21-32); Calcium, Blood 9.2 mg/dL (8.5-10.1); Chloride, Blood 106.0 mmol/L (98-108); Creatinine, Blood 1.2 mg/dL (0.40-1.00); Globulin, Blood 4.5 g/dL (2.2-4.0); Glucose, Blood 284.0 mg/dL (70-99); Potassium, Blood 5.4 mmol/L (3.5-5.5); Sodium, Blood 135.0 mmol/L (136-145); Total Protein, Blood 7.5 g/dL (6.4-8.2)
[2025-05-01 10:50] LABS: Source, Urine Clean Catch
[2025-05-01 10:54] LABS: Bilirubin, Urine Neg (Neg); Glucose Qualitative, Urine 2+ (Neg); Ketones, Urine Neg (Neg); Leukocyte Esterase, Urine Neg (Neg); Protein, Urine 2+ (Neg); Specific Gravity, Urine 1.010 (1.003-1.022); Urobilinogen, Urine NORM (Normal)
[2025-05-01 11:19] LABS: Color, Urine Pale Yellow (P-Yellow)
[2025-05-01 11:20] LABS: Red Blood Cells, Urine 0-2 /hpf (0-2); White Blood Cells, Urine 0-2 /hpf (0-5)
[2025-05-01] MEDS ORDERED: NS 1,000 ML IV SCH (11:30)
[2025-05-01] MEDS ORDERED: Ondansetron HCl 2 MG / ML 2ML Vial IV ONE (11:40)
[2025-05-01 14:06] VITALS: BP 148/74
[2025-05-01] MEDS ORDERED: ONDA4ODT MM ×2 (16:35)
== END 2025-05-01 14:00 | disposition home or self-care (01) ==
LOC: ER 08:16
PROVIDERS: Student in an Organized Health Care Education/Training Program
DX: J18.9 Pneumonia, unspecified organism (principal); N13.2 Hydronephrosis with renal and ureteral calculous obstruction; Z88.5 Allergy status to narcotic agent; Z88.7 Allergy status to serum and vaccine; Z79.2 Long term (current) use of antibiotics; Z79.84 Long term (current) use of oral hypoglycemic drugs; Z79.899 Other long term (current) drug therapy; E11.9 Type 2 diabetes mellitus without complications; Z87.891 Personal history of nicotine dependence
CPT/HCPCS: 71046; 74177; 80053; 81001; 84484; 85025; 93005; 93010; 96361; 96374-59; 99285-25; J2405; J7030; Q9967

== ENCOUNTER → 2025-06-09 | Outpatient (CLI) | payer OTHER ==
[2025-06-09 10:30] LABS: BASOPHILS ABSOLUTE AUTO 0.05 K/mm3 (0.00-0.23); BASOPHILS PERCENT AUTO 1 % (0-2); EOSINOPHILS ABSOLUTE AUTO 0.13 K/mm3 (0.00-0.68); EOSINOPHILS PERCENT AUTO 2 % (0-6); Hematocrit 33.5 % (33.0-51.0); Hemoglobin 10.7 g/dL (11.5-16.0); IMMATURE GRAN ABSOLUTE AUTO 0.06 K/mm3 (0.00-0.10); IMMATURE GRAN PERCENT AUTO 1 % (0-1); LYMPHOCYTES ABSOLUTE AUTO 0.74 K/mm3 (0.84-5.20); LYMPHOCYTES PERCENT AUTO 9 % (21-46); MONOCYTES ABSOLUTE AUTO 0.24 K/mm3 (0.16-1.47); MONOCYTES PERCENT AUTO 3 % (4-13); Mean Corpuscular HGB Conc 31.9 g/dL (31.5-36.5); Mean Corpuscular Volume 102 fL (80-100); NEUTROPHILS ABSOLUTE AUTO 6.76 K/mm3 (1.96-9.15); NEUTROPHILS PERCENT AUTO 85 % (41-73); NRBC ABSOLUTE 0.00 K/mm3 (0.00-0.02); NRBC Auto 0.0 /100 WBC (0.0-0.2); Platelet Count 283 K/mm3 (150-400); RDW Coefficient Variation 13.5 % (11.7-14.2); RDW Standard Deviation 50.8 fL (35.1-46.3)
[2025-06-09 10:44] LABS: Alanine Aminotransfer (ALT/SGP 14.0 U/L (12-78); Albumin, Blood 3.5 g/dL (3.4-5.0); Albumin/Globulin Ratio 0.9 (0.8-1.8); Anion Gap 10.0 mmol/L (3-11); Aspartate Aminotrans (AST/SGOT 10.0 U/L (12-37); Bilirubin, Total 0.5 mg/dL (0.1-1.0); Blood Urea Nitrogen 24.0 mg/dL (8-24); CO2, Blood 28.0 mmol/L (21-32); Calcium, Blood 8.9 mg/dL (8.5-10.1); Chloride, Blood 99.0 mmol/L (98-108); Creatinine, Blood 1.51 mg/dL (0.40-1.00); Globulin, Blood 3.7 g/dL (2.2-4.0); Glucose, Blood 284.0 mg/dL (70-99); Potassium, Blood 5.1 mmol/L (3.5-5.5); Sodium, Blood 132.0 mmol/L (136-145); Total Protein, Blood 7.2 g/dL (6.4-8.2)
== END ==
LOC: LAB SHORT 10:26 → LAB 10:26
PROVIDERS: Physician Assistant
DX: R06.02 Shortness of breath (principal)
CPT/HCPCS: 80053; 83880; 84484; 85025